=== PATIENT | female | born 1995 | race African-American/Black ===

== ENCOUNTER → 2019-10-11 | Outpatient (CLI) | payer OTHER ==
--- NOTE | 2019-10-11 16:15 | RAD ---
LUMBAR SPINE 2-3V DATE: 10/11/2019 12:00 AM INDICATION: Back pain COMPARISON: None. FINDINGS: Five non-rib bearing lumbar-type vertebral bodies are present. Bones/Alignment: No evidence of acute compression fracture. There is no listhesis. Joints: There is no disc space loss. Miscellaneous: None. IMPRESSION: Vertebral body heights, alignment, and disc spaces are maintained Electronically signed by: Reddy Acosta MD (10/11/2019 4:12 PM) [facility] [place]
== END ==
LOC: DXRAD 14:48
PROVIDERS: ATTEND Family Medicine
DX: M62.830 Muscle spasm of back (principal)
CPT/HCPCS: 72100